=== PATIENT | male | born 1970 | race Caucasian/White ===

== ENCOUNTER 2022-04-16 11:33 | Emergency (ER) | payer MEDICAID ==
[~2022-04-16] VITALS: Ht 167.6 cm; Wt 86.2 kg
[2022-04-16 12:10] VITALS: BP_SYST 155
--- NOTE | 2022-04-16 12:50 | NUR ---
Patient to ER bed 7 to gown for evaluation. Side rails up. Report given to Uma SEE.
--- NOTE | 2022-04-16 13:10 | NUR ---
Pt bib self from home CC laceration right forearm . Controlled bleeding with kerlix wrap. Pt denies dizziness.
--- NOTE | 2022-04-16 13:45 | NUR ---
KYLAH Connolly at bedside examining patient.
--- NOTE | 2022-04-16 13:50 | NUR ---
MD RIVERA PROCEDURE SUTURE TO LEFT ARM WITH 3.0 PROLENE.
[2022-04-16] MEDS ORDERED: BACI15OI13 TP (14:05)
--- NOTE | 2022-04-16 14:14 | NUR ---
Patient given written and verbal discharge instructions and verbalizes understanding. ER MD discussed with patient the results and treatment provided. Patient in stable condition. ID arm band removed. Rx of BACITRACIN given. Patient educated on pain management and to follow up with PMD. Opportunity for questions provided and answered. Medication side effect fact sheet provided.
[2022-04-16] MEDS ORDERED: BACITRACIN ZINC 15 GM TOPICAL OINTMENT TP ONE (14:15)
[2022-04-16 14:17] VITALS: BP_SYST 155
== END 2022-04-16 14:17 | disposition home or self-care (01) ==
LOC: SED 11:33
DX: S51.812A Laceration without foreign body of left forearm, initial encounter (principal); I10 Essential (primary) hypertension; Z79.899 Other long term (current) drug therapy; W26.0XXA Contact with knife, initial encounter; Y93.89 Activity, other specified; Y92.89 Other specified places as the place of occurrence of the external cause; Y99.8 Other external cause status
CPT/HCPCS: 99282

== ENCOUNTER 2022-04-26 18:13 | Emergency (ER) | payer MEDICAID ==
[~2022-04-26] VITALS: Ht 167.6 cm; Wt 86.2 kg
[~2022-04-26 18:13] MED LIST: BACI15OI13 TP
--- NOTE | 2022-04-26 18:15 | NUR ---
Patient triaged and placed in waiting room. VSS and patient appears in no acute distress at this time. Accompanied by SELF, awaiting available bed, and MD notified of need for MSE.
[2022-04-26 18:30] VITALS: BP_SYST 157
--- NOTE | 2022-04-26 21:28 | NUR ---
PT CALLED MULTIPLE TIMES AND NO ANSWER
--- NOTE | 2022-04-26 21:35 | NUR ---
PT CALLED BACK AND NO ANSWER
== END 2022-04-26 21:35 | disposition left against medical advice (07) ==
LOC: SED 18:13
DX: Z48.02 Encounter for removal of sutures (principal); Z53.21 Procedure and treatment not carried out due to patient leaving prior to being seen by health care provider